=== PATIENT | female | born 1990 | race Caucasian/White ===

== ENCOUNTER 2016-10-09 13:39 | Emergency (ER) | payer OTHER, BC ==
[2016-10-09] MEDS ORDERED: HYDROcodone/APAP 5-325MG 1 EACH TAB PO STA ×2 (13:56→14:49)
[2016-10-09] MEDS ORDERED: DIPH,PERTUS(ACELL)TETVAC-LF 0.5 ML VIAL IM ONE (14:02)
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
[2016-10-09 16:44] VITALS: BP 128/85; PULSE 87; RESP 16; TEMP 99.4
== END 2016-10-09 16:50 | disposition short-term general hospital (02) ==
LOC: EC 13:39
DX: S82.51XA Displaced fracture of medial malleolus of right tibia, initial encounter for closed fracture (principal); S32.011A Stable burst fracture of first lumbar vertebra, initial encounter for closed fracture; S22.081A Stable burst fracture of T11-T12 vertebra, initial encounter for closed fracture; S70.01XA Contusion of right hip, initial encounter; S60.811A Abrasion of right wrist, initial encounter; Z23 Encounter for immunization; Z88.8 Allergy status to other drugs, medicaments and biological substances; Z79.3 Long term (current) use of hormonal contraceptives; V43.52XA Car driver injured in collision with other type car in traffic accident, initial encounter; Y92.410 Unspecified street and highway as the place of occurrence of the external cause
CPT/HCPCS: 29515; 72100; 72131; 90471; 90715; 99285